=== PATIENT | male | born 1950 | race Caucasian/White ===

== ENCOUNTER 2017-12-16 08:48 | Observation (INO) ==
[2017-12-16] MEDS ORDERED: Metoclopramide 10 MG/2 ML VIAL IVP ONE (09:07)
[2017-12-16] MEDS ORDERED: diazePAM 10 MG/2 ML SYRINGE IVP STA (09:10)
--- NOTE | 2017-12-16 09:15 | Emergency Department Note ---
Disposition Clinical Impression: Dizziness, Nausea Disposition: Admitted As Inpatient Condition: Fair Referrals: Clarke Arias MD [Primary Care Provider] - Dizziness HPI - General Chief Complaint: ED Dizziness Stated Complaint: N/V Dizzy Post Lithotripsy Time Seen by Provider: 12/16/17 08:53 Source: patient Mode of arrival: private vehicle Limitations: no limitations Nursing Notes Reviewed: Yes Vital Signs Reviewed: Yes - History of Present Illness HPI Narrative: Patient is a 67-year-old male with past medical history including hypertension and diabetes mellitus type 2 who presents with a chief complaint of dizziness. The patient states yesterday evening he had a lithotripsy done. He has no history of complications from anesthesia. Around 1999 he states he developed dizziness when he stood up. He describes it as his head is spinning. It worsens with movement. The dizziness has not completely resolved. He feels unsteady on his feet. Family states that his gait is abnormal and he has to hold onto furniture to walk. He also complains of nausea and multiple episodes of vomiting associated with the dizziness. He denies chest pain, weakness, numbness or tingling, slurred speech or facial droop. Denies confusion or headaches. He states he has never had this before. He presents this morning for further evaluation of his dizziness. - Related Data Home Medications Medication Instructions Recorded Confirmed Cyanocobalamin (Vitamin B-12) 1,000 mcg PO 03/06/15 03/06/15 [Vitamin B-12] Ferrous Sulfate 325 mg PO DAILY 03/06/15 12/15/17 Glimepiride [Amaryl] 2 mg PO 0800 03/06/15 12/15/17 Hydrochlorothiazide 50 mg PO DAILY 03/06/15 12/15/17 Potassium Citrate [Urocit-K] 20 meq PO TID 03/06/15 12/15/17 Pravastatin Sodium 10 mg PO DAILY 03/06/15 12/15/17 Vit/FA 1 each PO DAILY 03/06/15 12/15/17 Cyclobenzaprine [Flexeril] 10 mg PO TID 12/15/17 12/15/17 Diclofenac Potassium 50 mg PO BID PRN 12/15/17 12/15/17 Exenatide Microspheres [Bydureon] 2 mg SQ QWEEK 12/15/17 12/15/17 Levomefolate/B6/B12/Algal Oil 1 each PO DAILY 12/15/17 12/15/17 [Metanx Capsule] SitaGLIPtin [Januvia] 100 mg PO DAILY 12/15/17 12/15/17 Previous Rx's Medication Instructions Recorded Oxycodone HCl/Acetaminophen 1 each PO Q4H 5 Days #20 tablet 12/15/17 [Percocet 5-325 mg Tablet] Allergies Allergy/AdvReac Type Severity Reaction Status Date / Time metformin Allergy Diarrhea Verified 12/06/17 10:11 Constitutional: Denies: fever, chills Eyes: Denies: vision change ENT ED: Denies: dysphagia Cardiovascular: Denies: chest pain, palpitations Respiratory: Denies: cough, dyspnea Gastrointestinal: Reports: nausea, vomiting. Denies: abdominal pain Genitourinary: Denies: dysuria Integumentary: Denies: rash Neurological: Reports: abnormal gait, vertigo. Denies: headache, weakness Hematological/Lymphatic: Denies: easy bleeding Past Medical History - Past Medical History Attestation: Yes The following information was validated with the patient. Source: patient Medical history: Reports: diabetes, GERD, hyperlipidemia, hypertension, kidney stones, other Surgical history: Reports: appendectomy, cholecystectomy, orthopedic, other, ureteral stent, other Psychiatric history: Reports: no psych history - Social History Smoking Status: Never smoker Smokeless Tobacco Status: No Alcohol use: Reports: none Drug use: Reports: none Physical Exam - General Limitations: no limitations General appearance: alert, in no apparent distress - Head Head exam: atraumatic, normocephalic - Eye Eye exam: Present: PERRL, EOMI. Absent: nystagmus - Respiratory Respiratory exam: Present: normal lung sounds bilaterally. Absent: respiratory distress, wheezes - Cardiovascular Cardiovascular exam: Present: regular rate, normal rhythm, normal heart sounds - Abdominal Exam Abdominal exam: Present: soft, Non-Tender, normal bowel sounds. Absent: distention - Extremities Exam Extremities exam: Present: full ROM. Absent: pedal edema - Neurological Exam Neurological exam: Present: alert, oriented X3, CN II-XII intact, other ( Patient wobbly while standing still. ) - Expanded Neurological Exam Patient oriented to: Present: person, place, time Speech: Present: fluid speech Cranial nerves: EOM function (II, III, IV, ): Normal, facial sensation (V): Normal, facial palsy (VII): Normal, tongue deviation (XII): Normal Cerebellar function: finger to nose: Normal, heel to duran: Normal Motor strength - LUE: 5/5 Motor strength - RUE: 5/5 Motor strength - LLE: 5/5 Motor strength - RLE: 5/5 Upper motor neuron exam: alfredo neglect: Absent bilaterally Sensory exam upper extremity: light touch: Normal Sensory exam lower extremity: light touch: Normal Coma Scale Eye Opening: Spontaneous Coma Scale Motor Response: Obeys Commands Coma Scale Verbal Response: Oriented Coma Scale Total: 15 Course Course Narrative: Patient has no ataxia or neurologic deficit noted on exam. His dizziness has been constant since yesterday around 1999. He has no history of TIA or CVA. Will check CT head without contrast to evaluate for any intracranial bleed. The patient will likely need an MRI to further evaluate for possible posterior circulation CVA. We will check CBC, BMP, POC glucose, troponin. We will give the patient Valium and Reglan for his symptoms. Patient does not meet criteria for TPA. He has no gross neurologic deficits. 09:45 Labs reviewed. Troponin negative. Electrolytes within normal limits. Glucose 3:30. Patient states he has not taken his medication today. We will radiate results of CT. 10:08 Patient oxygen saturation dropped to 89%. He wears oxygen at nighttime. Place the patient on 2L O2 per nasal cannula. He denies shortness of breath. Chest x-ray without acute cardiopulmonary abnormalities. CT head without acute intracranial abnormalities. Results show chronic small vessel disease. Patient will need an MRI for further evaluation and to rule out a posterior circulation stroke. 10:20 Patient states she is feeling better. His nausea is resolved and his dizziness is improved. The patient stand up and ambulate. He still appears to be unsteady will consult hospitalist for admission. 10:28 Discussed with Hospitalist, Dr. Waters. He will admit the patient. Recommended orthostatic vitals, which was ordered. All questions were answered and patient and family are agreeable to plan of care. Vital Signs Temperature 97.8 F 12/16/17 08:50 Pulse Rate 93 12/16/17 08:50 Respiratory Rate 20 12/16/17 08:50 Blood Pressure 168/90 12/16/17 08:50 O2 Sat by Pulse Oximetry 96 12/16/17 08:50 Temperature 97.8 F 12/16/17 09:45 Pulse Rate 93 12/16/17 09:45 Respiratory Rate 20 12/16/17 09:45 Blood Pressure 168/90 12/16/17 09:45 O2 Sat by Pulse Oximetry 96 12/16/17 09:45 Oxygen Delivery Oxygen Delivery Room Air Dizziness - Medical Records Medical records reviewed: Yes I reviewed the patient's medical records. - Lab Data Lab results reviewed: Yes I reviewed the patient's lab results. Result diagrams: 12/16/17 09:11 12/16/17 09:11 Lab Results 12/16/17 12/16/17 Range/Units 09:11 09:11 WBC 10.7 (4.3-11.1) K/mcL RBC 4.81 (4.19-5.50) M/mcL Hgb 15.3 (12.9-16.9) g/dL Hct 43.2 (37.5-50.1) % MCV 89.8 (83.0-100.0) fL MCH 31.8 (28.0-33.3) pg MCHC 35.4 (31.6-35.5) g/dL RDW 12.7 (11.5-14.5) % Plt Count 165 (140-400) K/mcL MPV 10.4 (9.4-12.4) fL Immature Gran % 0.3 (0-4) % Seg Neutrophils % 85.0 % Lymphocytes % 10.3 % Monocytes % 4.3 % Eosinophils % 0.0 % Basophils % 0.1 % Neutrophils # 9.1 H (1.6-8.9) K/mcL Lymphocytes # 1.1 (0.6-4.6) K/mcL Monocytes # 0.5 (0.0-1.3) K/mcL Eosinophils # 0.0 (0.0-0.6) K/mcL Basophils # 0.0 (0.0-0.2) K/mcL Sodium 138 (136-145) mEq/L Potassium 4.0 (3.5-5.1) mEq/L Chloride 101 (98-107) mEq/L Carbon Dioxide 24 (23-29) mEq/L BUN 14 (8-23) mg/dL Creatinine 1.06 (0.70-1.30) mg/dL Est GFR ( Amer) > 60 (> 60) Est GFR (Non-Af Amer) > 60 (> 60) BUN/Creatinine Ratio 13 (6-26) Glucose 333 H (70-105) mg/dL Calculated Osmolality 300 (280-300) Calcium 9.3 (8.6-10.3) mg/dL Troponin I < 0.03 (< 0.04) ng/mL - Radiology Data Radiology results reviewed: Yes I reviewed the patient's radiology results. Chest X-Ray 12/16/17 09:06 IMPRESSION: No acute findings. D/ / Atul Canales / Atul Canales Interpreting Provider: Atul Canales Head CT 12/16/17 09:11 IMPRESSION: 1. No acute intracranial abnormality. 2. Periventricular and subcortical white matter hypodensities are commonly due to chronic small vessel ischemic disease. D/ / Kerwin Martinez MD / Kerwin Martinez MD Interpreting Provider: Kerwin Martinez MD - EKG Data EKG attestation: Yes I reviewed and interpreted this EKG. EKG results narrative: EKG on 12/16/2017 with sinus rhythm with rate 84 bpm. DE interval 170 ms. QRS duration 97 ms. QTC 396 ms. Left axis deviation . No evidence of ST elevation or depression. Overall no acute ischemia. Compared to EKG on 12/06/2017. Appears unchanged.
[2017-12-16 09:21] LABS: Basophils % 0.1 %; Hematocrit 43.2 % (37.5-50.1); Hemoglobin 15.3 g/dL (12.9-16.9); Immature Granulocytes % 0.3 % (0-4); Lymphocytes # 1.1 K/mcL (0.6-4.6); Lymphocytes % 10.3 %; Mean Corpuscular HGB Conc 35.4 g/dL (31.6-35.5); Mean Corpuscular Hemoglobin 31.8 pg (28.0-33.3); Mean Corpuscular Volume 89.8 fL (83.0-100.0); Mean Platelet Volume 10.4 fL (9.4-12.4); Monocytes # 0.5 K/mcL (0.0-1.3); Monocytes % 4.3 %; Neutrophils # 9.1 K/mcL (1.6-8.9); Platelet Count 165 K/mcL (140-400); Red Blood Count 4.81 M/mcL (4.19-5.50); Red Cell Distribution Width 12.7 % (11.5-14.5)
[2017-12-16 09:41] LABS: BUN/Creatinine Ratio 13 (6-26); Blood Urea Nitrogen 14 mg/dL (8-23); Carbon Dioxide 24 mEq/L (23-29); Chloride 101 mEq/L (98-107); Sodium 138 mEq/L (136-145)
[2017-12-16 09:42] LABS: Calcium 9.3 mg/dL (8.6-10.3); Glucose 333 mg/dL (70-105); Osmolality,Calculated 300 (280-300); eGFR For Non-African Americans > 60 (> 60)
[2017-12-16 09:43] LABS: Troponin I < 0.03 ng/mL (< 0.04)
[2017-12-16] MEDS ORDERED: Naloxone 0.4 MG/ML INJ IVP PRN (10:28)
[2017-12-16] MEDS ORDERED: Aspirin 81 MG TAB.CHEW PO STA (10:31)
--- NOTE | 2017-12-16 11:10 | Internal Med History&Physical ---
Date of Encounter: 12/16/17 Time of Encounter: 10:45 Internal Medicine - H&P: HPI Chief complaint: vertigo Admitted From: Home History of present illness: Mr. Sherwood is a 67 year old male with past medical history of diabetes, who just had left ESWL yesterday under general anesthesia, presented to the ED this morning with sudden onset of vertigo. He states that he felt fine postoperatively and went home. At around 8:30 last night, he developed sudden onset of spinning sensation associated with nausea and vomiting. Was unsteady on his feet and almost fell backward but was able to prevent it. Denies any loss of consciousness, blurring of vision, headache, or focal weakness or numbness. No slurring of speech or facial droop. Denies any chest pain, shortness of breath, palpitation, orthopnea, PND, or lower leg swelling. Vertigo persisted throughout the night into the morning and therefore he decided to come to the ED for further evaluation. In the ED, he was afebrile and hemodynamically stable. Labs were unremarkable except for glucose of 333. Chest x-ray was unremarkable. CT head did not show any acute intracranial processes. His vertigo improved with Reglan however his unsteadiness on his feet persisted. He is admitted for further management. Past Med Surg Social Fam HX - Past Medical History Attestation: Yes The following information was validated with the patient. Medical history: diabetes, GERD, hyperlipidemia, hypertension, kidney stones, other Psychiatric history: no psych history - Past Surgical History Surgical History: appendectomy, cholecystectomy, orthopedic, other, ureteral stent, other Additional surgical history: CYSTOSCOPY, R ANKLE ORIF, ESWL, GASTRIC BYPASS, PANNICULECTOMY/ABDOMINOPLASTY, BACK C3-4, SEPTOPLASTY - Social History Smoking Status: Never smoker Smokeless Tobacco Status: No Alcohol use: none Drug use: none Internal Medicine - H&P: Meds Cyanocobalamin (Vitamin B-12) [Vitamin B-12] 1,000 mcg PO DAILY 03/06/15 [ History] Ferrous Sulfate 325 mg PO DAILY 03/06/15 [History] Glimepiride [Amaryl] 2 mg PO 0800 03/06/15 [History] Hydrochlorothiazide 50 mg PO DAILY 03/06/15 [History] Potassium Citrate [Urocit-K] 20 meq PO TID 03/06/15 [History] Pravastatin Sodium 10 mg PO DAILY 03/06/15 [History] Vit/FA 1 each PO DAILY 03/06/15 [History] Cyclobenzaprine [Flexeril] 10 mg PO TID 12/15/17 [History] Diclofenac Potassium 50 mg PO BID PRN 12/15/17 [History] Exenatide Microspheres [Bydureon] 2 mg SQ QWEEK 12/15/17 [History] Levomefolate/B6/B12/Algal Oil [Metanx Capsule] 1 each PO DAILY 12/15/17 [History ] Oxycodone HCl/Acetaminophen [Percocet 5-325 mg Tablet] 1 each PO Q4H 5 Days #20 tablet 12/15/17 [Rx] SitaGLIPtin [Januvia] 100 mg PO DAILY 12/15/17 [History] 3 Allergy/AdvReac Type Severity Reaction Status Date / Time metformin Allergy Diarrhea Verified 12/06/17 10:11 All Systems PM: A 10-system review of systems was performed and is negative for pertinent findings except as documented above in the HPI. - Constitutional Vitals: Temp Pulse Resp BP Pulse Ox 97.8 F 93 20 168/90 96 12/16/17 09:45 12/16/17 09:45 12/16/17 09:45 12/16/17 09:45 12/16/17 09:45 Exam: General: Alert and oriented, not in distress HEENT:EOM, pupils equal, round, and reactive. Cardiovascular:Normal S1 & S2, no murmurs or gallops. No JVD. Pulse regular. Lungs:Normal breath sounds, no wheezes or crackles. Abdomen:Soft, non-tender, no rigidity. Extremities:No deformity, no edema or tenderness, no joint swelling. Neurological: Cranial nerves II-12 intact, no slurring of speech. Power and sensation in all 4 limbs intact. No cerebellar signs. No nystagmus. Skin:Normal color, no rash, no lesions. Pulses:Carotid and radial pulses normal +2. Rest of the physical exam is non-contributory Internal Med - H&P Results - Labs CBC & Chem 7: 12/16/17 09:11 12/16/17 09:11 - Assessment and plan (1) Vertigo Current Visit: Yes Status: Acute Assessment and plan: Presented with sudden vertigo in a diabetic patient He underwent procedure that required general anesthesia which may be partially responsible Nevertheless, persistent symptoms would warrant further workup for CVA NIH per protocol We will do MRI brain today. 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 - Time Spent With Patient Total time spent is greater than 50% in coordination of care (as documented) at patient's floor/unit and/or counseling patient:
[2017-12-16] MEDS ORDERED: *HR* Dextrose 50 % in Water (Syg) 50 ML SYRINGE IVP PRN (11:13)
[2017-12-16] MEDS ORDERED: Dextrose Gel 15 GM/37.5 ML TUBE PO PRN ×2 (11:13)
[2017-12-16] MEDS ORDERED: D5% in Water 1,000 ML IVC PRN (11:13)
--- NOTE | 2017-12-16 11:14 | Emergency Department Note ---
Disposition Clinical Impression: Dizziness, Nausea Disposition: Admitted As Inpatient Condition: Fair Referrals: Clarke Arias MD [Partnered Physician] - General Adult HPI - General Chief complaint: ED Dizziness Stated complaint: N/V Dizzy Post Lithotripsy Time Seen by Provider: 12/16/17 08:53 Source: patient Mode of arrival: private vehicle Limitations: no limitations Nursing Notes Reviewed: Yes Vital Signs Reviewed: Yes - History of Present Illness Pain Scale: 0 - Related Data Home Medications Medication Instructions Recorded Confirmed Cyanocobalamin (Vitamin B-12) 1,000 mcg PO DAILY 03/06/15 12/16/17 [Vitamin B-12] Ferrous Sulfate 325 mg PO DAILY 03/06/15 12/16/17 Glimepiride [Amaryl] 2 mg PO 0800 03/06/15 12/16/17 Hydrochlorothiazide 50 mg PO DAILY 03/06/15 12/16/17 Potassium Citrate [Urocit-K] 20 meq PO TID 03/06/15 12/16/17 Pravastatin Sodium 10 mg PO DAILY 03/06/15 12/16/17 Vit/FA 1 each PO DAILY 03/06/15 12/16/17 Cyclobenzaprine [Flexeril] 10 mg PO TID 12/15/17 12/16/17 Diclofenac Potassium 50 mg PO BID PRN 12/15/17 12/16/17 Exenatide Microspheres [Bydureon] 2 mg SQ QWEEK 12/15/17 12/16/17 Levomefolate/B6/B12/Algal Oil 1 each PO DAILY 12/15/17 12/16/17 [Metanx Capsule] SitaGLIPtin [Januvia] 100 mg PO DAILY 12/15/17 12/16/17 Previous Rx's Medication Instructions Recorded Oxycodone HCl/Acetaminophen 1 each PO Q4H 5 Days #20 tablet 12/15/17 [Percocet 5-325 mg Tablet] Allergies Allergy/AdvReac Type Severity Reaction Status Date / Time metformin Allergy Diarrhea Verified 12/06/17 10:11 Constitutional: Denies: fever, chills Eyes: Denies: vision change ENT ED: Denies: dysphagia Cardiovascular: Denies: chest pain, palpitations Respiratory: Denies: cough, dyspnea Gastrointestinal: Reports: nausea, vomiting. Denies: abdominal pain Genitourinary: Denies: dysuria Integumentary: Denies: rash Neurological: Reports: abnormal gait, vertigo. Denies: headache, weakness Hematological/Lymphatic: Denies: easy bleeding Past Medical History - Past Medical History Medical history: Reports: diabetes, GERD, hyperlipidemia, hypertension, kidney stones, other Surgical history: Reports: appendectomy, cholecystectomy, orthopedic, other, ureteral stent, other Psychiatric history: Reports: no psych history - Social History Smoking Status: Never smoker Smokeless Tobacco Status: No Alcohol use: Reports: none Drug use: Reports: none Physical Exam - General Limitations: no limitations General appearance: alert, in no apparent distress Course Vital Signs Temperature 97.8 F 12/16/17 08:50 Pulse Rate 93 12/16/17 08:50 Respiratory Rate 20 12/16/17 08:50 Blood Pressure 168/90 12/16/17 08:50 O2 Sat by Pulse Oximetry 96 12/16/17 08:50 Temperature 97.8 F 12/16/17 09:45 Pulse Rate 93 12/16/17 09:45 Respiratory Rate 20 12/16/17 09:45 Blood Pressure 168/90 12/16/17 09:45 O2 Sat by Pulse Oximetry 96 12/16/17 09:45 Oxygen Delivery Oxygen Delivery Room Air Medical Decision Making - Lab Data Result diagrams: 12/16/17 09:11 12/16/17 09:11 Lab Results 12/16/17 12/16/17 Range/Units 09:11 09:11 WBC 10.7 (4.3-11.1) K/mcL RBC 4.81 (4.19-5.50) M/mcL Hgb 15.3 (12.9-16.9) g/dL Hct 43.2 (37.5-50.1) % MCV 89.8 (83.0-100.0) fL MCH 31.8 (28.0-33.3) pg MCHC 35.4 (31.6-35.5) g/dL RDW 12.7 (11.5-14.5) % Plt Count 165 (140-400) K/mcL MPV 10.4 (9.4-12.4) fL Immature Gran % 0.3 (0-4) % Seg Neutrophils % 85.0 % Lymphocytes % 10.3 % Monocytes % 4.3 % Eosinophils % 0.0 % Basophils % 0.1 % Neutrophils # 9.1 H (1.6-8.9) K/mcL Lymphocytes # 1.1 (0.6-4.6) K/mcL Monocytes # 0.5 (0.0-1.3) K/mcL Eosinophils # 0.0 (0.0-0.6) K/mcL Basophils # 0.0 (0.0-0.2) K/mcL Sodium 138 (136-145) mEq/L Potassium 4.0 (3.5-5.1) mEq/L Chloride 101 (98-107) mEq/L Carbon Dioxide 24 (23-29) mEq/L BUN 14 (8-23) mg/dL Creatinine 1.06 (0.70-1.30) mg/dL Est GFR ( Amer) > 60 (> 60) Est GFR (Non-Af Amer) > 60 (> 60) BUN/Creatinine Ratio 13 (6-26) Glucose 333 H (70-105) mg/dL Calculated Osmolality 300 (280-300) Calcium 9.3 (8.6-10.3) mg/dL Troponin I < 0.03 (< 0.04) ng/mL Attestation Statement - Attestation Attestation: I, Alex Cummings, examined this patient and my medical decision-making was reviewed with the BLACKENER/PA/Advanced Practice Nurse/Resident Physician. I agree with the documented findings, disposition and treatment plan as described except to the extent set forth below. 67-year-old male presents emergency Department with concerns of dizziness and difficulty with ambulation. Patient describes vertigo with room spinning, unable to ambulate without holding onto a nearby items. Patient had a lithotripsy procedure performed yesterday, he felt well after the procedure and ambulated well at home. A p.m. last night he started having acute onset of his symptoms. He slept well throughout the night however upon waking he was unable to ambulate without holding onto items. There is no focal neurologic deficits noted on exam however he does have a right beating nystagmus. Patient was given Reglan and Benadryl emergency department with significant improvement of his symptoms however he continued to remain vertiginous with ambulation. CT of the head is negative for acute intracranial hemorrhage or fracture. We will admit the patient for further evaluation of possible posterior CVA.
[2017-12-16] MEDS: Potassium Citrate 10 MEQ TABLET.ER PO SCH ×2 (14:12→17:59)
[2017-12-16] MEDS: Insulin LISPRO 300 UNITS/3 ML VIAL SQ SCH ×2 (14:12→17:59)
[2017-12-16] MEDS: *HR* Heparin 5,000 UNIT/ML VIAL SQ SCH (18:00)
[2017-12-16] MEDS ORDERED: Insulin LISPRO 300 UNITS/3 ML VIAL SQ SCH (21:00)
[2017-12-17 03:13] LABS: Basophils % 0.1 %; Eosinophils % 0.3 %; Hematocrit 40.7 % (37.5-50.1); Immature Granulocytes % 0.3 % (0-4); Lymphocytes # 2.4 K/mcL (0.6-4.6); Lymphocytes % 24.8 %; Mean Corpuscular HGB Conc 33.7 g/dL (31.6-35.5); Mean Corpuscular Hemoglobin 30.5 pg (28.0-33.3); Mean Corpuscular Volume 90.6 fL (83.0-100.0); Mean Platelet Volume 10.9 fL (9.4-12.4); Monocytes # 0.4 K/mcL (0.0-1.3); Monocytes % 4.6 %; Neutrophils # 6.6 K/mcL (1.6-8.9); Platelet Count 155 K/mcL (140-400); Red Blood Count 4.49 M/mcL (4.19-5.50); Red Cell Distribution Width 13.2 % (11.5-14.5); Segmented Neutrophils % 69.9 %
[2017-12-17 03:15] LABS: Hemoglobin 13.7 g/dL (12.9-16.9)
[2017-12-17 03:32] LABS: BUN/Creatinine Ratio 17 (6-26); Blood Urea Nitrogen 19 mg/dL (8-23); Calcium 9.1 mg/dL (8.6-10.3); Carbon Dioxide 31 mEq/L (23-29); Chloride 104 mEq/L (98-107); Chol/HDL Ratio 3.2 (0-4.9); Cholesterol 141 mg/dL (< 200); Glucose 99 mg/dL (70-105); HDL Cholesterol 44 mg/dL (40-59); LDL Cholesterol,Calculated 75 mg/dL (0-99); Osmolality,Calculated 294 (280-300); Potassium 3.7 mEq/L (3.5-5.1); Sodium 141 mEq/L (136-145); Triglycerides 108 mg/dL (< 150); eGFR For Non-African Americans > 60 (> 60)
[2017-12-17] MEDS: *HR* Heparin 5,000 UNIT/ML VIAL SQ SCH (05:49)
[2017-12-17] MEDS ORDERED: METHYLCOBALAMIN PO SCH (09:00)
[2017-12-17] MEDS ORDERED: [UNRECOGNIZED DRUG - OTHER] PO SCH (09:00)
[2017-12-17] MEDS ORDERED: hydroCHLOROthiazide 25 MG TABLET PO SCH (09:00)
[2017-12-17] MEDS ORDERED: Cyanocobalamin (B-12) 1,000 MCG TABLET PO SCH (09:00)
[2017-12-17] MEDS ORDERED: ALGAL OIL PO SCH (09:00)
[2017-12-17] MEDS ORDERED: LEVOMEFOLATE PO SCH (09:00)
[2017-12-17] MEDS: Insulin LISPRO 300 UNITS/3 ML VIAL SQ SCH ×2 (09:01→12:15)
[2017-12-17] MEDS: Potassium Citrate 10 MEQ TABLET.ER PO SCH ×2 (09:02→12:16)
[2017-12-17] MEDS ORDERED: Aspirin 81 MG TAB.CHEW PO SCH (14:00)
[2017-12-17 15:02] VITALS: BP 125/63
--- NOTE | 2017-12-17 16:42 | Discharge Summary ---
- NOTES TO OUTPATIENT PROVIDER Notes to Outpatient Provider: Follow-up with PCP in 2-3 days Orders not resulted at time of discharge: Pending orders 12/16/17 11:10 EKG [ECG 12 lead ECG] [ECG] Stat Date of Encounter: 12/17/17 Time of Encounter: 16:38 - Discharge Diagnosis (1) Vertigo Priority: Primary Status: Acute Assessment and Plan: Sudden onset of vertigo post procedure while recovering from anesthesia postop ESWL on this Monday. Patient got admitted for a stroke rule out workup. MRI brain with no acute finding, carotid ultrasound preliminary report with no acute finding. During his stay his symptoms resolved almost completely and able to ambulate without any support or fall. Fasting lipid profile within normal limit. Incidental finding of chronic small vessel changes in the MRI brain therefore advise for baby aspirin but patient wanted to discuss with PCP before starting. Patient is requesting to go home. I also advise patient to discuss with PCP about getting echocardiogram done on opd basis. Vertigo could be most likely due to the fact of anesthetic medicine while recovering postoperatively. Will discharge patient on meclizine when necessary. 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 Sherwood is a 67 year old male patient got admitted for CVA workup as sudden onset of vertigo postoperatively. MRI brain and carotid ultrasound with no acute finding. Please see details in diagnosis part of discharge summary. Patient is stable, ambulating tolerating oral diet at the time of discharge. Discharge discussed with: patient, family - Time Spent with Patient Total time spent providing and/or coordinating discharge services: - Discharge Medications Home Medications: Cyanocobalamin (Vitamin B-12) [Vitamin B-12] 1,000 mcg PO DAILY 03/06/15 [ History] Ferrous Sulfate 325 mg PO DAILY 03/06/15 [History] Glimepiride [Amaryl] 2 mg PO 0800 03/06/15 [History] Hydrochlorothiazide 50 mg PO DAILY 03/06/15 [History] Potassium Citrate [Urocit-K] 20 meq PO TID 03/06/15 [History] Pravastatin Sodium 10 mg PO DAILY 03/06/15 [History] Vit/FA 1 each PO DAILY 03/06/15 [History] Cyclobenzaprine [Flexeril] 10 mg PO TID 12/15/17 [History] Diclofenac Potassium 50 mg PO BID PRN 12/15/17 [History] Exenatide Microspheres [Bydureon] 2 mg SQ QWEEK 12/15/17 [History] Levomefolate/B6/B12/Algal Oil [Metanx Capsule] 1 each PO DAILY 12/15/17 [History ] Oxycodone HCl/Acetaminophen [Percocet 5-325 mg Tablet] 1 each PO Q4H 5 Days #20 tablet 12/15/17 [Rx] SitaGLIPtin [Januvia] 100 mg PO DAILY 12/15/17 [History] Allergies/Adverse Reactions: 3 Allergy/AdvReac Type Severity Reaction Status Date / Time metformin Allergy Diarrhea Verified 12/06/17 10:11 Date of admission: 12/16/17 10:38 Primary care physician: Clarke Arias MD - Constitutional Vitals: Temp Pulse Resp BP Pulse Ox 97.7 F 77 15 125/63 96 12/17/17 15:00 12/17/17 15:00 12/17/17 15:00 12/17/17 15:00 12/17/17 15:00 Exam: General appearance: No acute distress, A&O X 3 Head exam: Atraumatic Eye exam: EOMI, PERRLA ENT exam: Moist oral mucosa Neck nontender, supple Respiratory exam: Clear to auscultation bilaterally Cardiovascular exam: Regular rate and rhythm, no systolic murmur Abdominal exam: Soft, nontender, nondistended, positive bowel sounds Extremities exam: No calf tenderness, no pedal edema Present: Skin-no rash, warm, dry, intact Neurological exam: Alert, awake, oriented 3, CN II-XII intact, no focal deficits. No facial droop. Normal speech. Normal gait. Romberg sign negative - Patient Status Disposition: Home, Self-Care Condition: Good Overall status at discharge: patient is back to baseline - Discharge Instructions Follow Up With: Clarke Arias MD [Primary Care Provider] - - Diet and Activity Activity: increase activity as tolerated Diet: advance to your usual diet, diabetic diet, low fat, low cholesterol, low salt diet
--- NOTE | 2017-12-18 17:47 | Electrocardiograph Report ---
[address] [address] Test Date: 2017-12-16 Pat Name: Jim Sherwood Department: 104 Room: 3B48 Gender: M Application Support Intern: CARMEN : 1950 Requested By: Mulugeta Waters Order Number: [id number] Reading MD: Marianna Good Measurements Intervals Sherrill Rate: 84 P: 12 ND: 170 QRS: -25 QRSD: 97 T: 8 QT: 354 QTc: 396 Interpretive Statements SINUS RHYTHM BORDERLINE LEFT AXIS DEVIATION [QRS AXIS < -20] Electronically Signed On 12-18-2017 17:45:55 EDT by Marianna Good
== END 2017-12-17 17:39 | disposition home or self-care (01) ==
LOC: 3BNU 08:48 → EMEROO 08:48 → 3BNU 11:14
PROVIDERS: ADMIT Internal Medicine; ATTEND Internal Medicine

== ENCOUNTER 2019-09-03 09:44 | Inpatient (IN) ==
[2019-09-03] MEDS ORDERED: CeFAZolin Syr 2,000MG/20 ML 2,000 MG/20 ML SYRINGE IVPB ONE (10:20)
[2019-09-03] MEDS ORDERED: Ringers Solution, Lactated 1,000 ML IVC SCH (10:30)
[2019-09-03] MEDS ORDERED: *HR* OxyCODONE Immed Rel 5 MG TABLET PO PRN (11:24)
[2019-09-03] MEDS ORDERED: *HR* HYDROmorphone PF 0.5 MG/0.5 ML SYRINGE IVP PRN (11:24)
[2019-09-03] MEDS ORDERED: Ondansetron 4 MG/2 ML VIAL IVP ONE (11:24)
[2019-09-03] MEDS ORDERED: *HR* Midazolam HCl 2 MG/2 ML VIAL ONE (12:04)
[2019-09-03] MEDS ORDERED: *HR* FentaNYL (PF) 100 MCG/2 ML VIAL ONE ×2 (12:04→13:21)
[2019-09-03] MEDS ORDERED: *HR* Propofol 200 MG/20 ML VIAL IVP ONE (12:05)
[2019-09-03] MEDS ORDERED: *HR* Rocuronium Bromide 50 MG/5 ML VIAL ONE ×2 (12:07→14:06)
[2019-09-03] MEDS ORDERED: Lidocaine HCL 4 ML Topical Solution (Laryng-O-Jet Kit Sterile Pak) TP ONE (12:07)
[2019-09-03] MEDS ORDERED: Ondansetron 4 MG/2 ML VIAL ONE ×2 (12:07→14:21)
[2019-09-03] MEDS ORDERED: Lidocaine -MPF 2% 2 ML VIAL ONE (12:07)
[2019-09-03] MEDS ORDERED: Acetaminophen IV 1,000 MG/100 ML INFUS..BTL ONE (12:34)
[2019-09-03] MEDS ORDERED: *HR* PHENYLEPHRINE 1,000 MCG/10 ML SYRINGE IVP ONE (14:04)
[2019-09-03] MEDS ORDERED: *HR* Succinylcholine 200 MG/10 ML VIAL IVP ONE (14:05)
[2019-09-03] MEDS ORDERED: *HR* HYDROMORPHONE 2 MG/ML VIAL ONE (14:56)
[2019-09-03] MEDS ORDERED: *HR* Labetalol 20 MG/4 ML SYRINGE IVP PRN (15:14)
[2019-09-03] MEDS ORDERED: *HR* Labetalol 20 MG/4 ML SYRINGE IVP ONE (15:16)
[2019-09-03] MEDS ORDERED: D5% in Water 1,000 ML IVC PRN (16:51)
[2019-09-03] MEDS ORDERED: *HR* Dextrose 50 % in Water (Syg) 50 ML SYRINGE IVP PRN (16:51)
[2019-09-03] MEDS ORDERED: *HR* FentaNYL (PF) 100 MCG/2 ML VIAL IVP PRN (16:51)
[2019-09-03] MEDS ORDERED: ALPRAZolam 0.25 MG TABLET PO PRN (16:51)
[2019-09-03] MEDS ORDERED: Dextrose Gel 15 GM/37.5 ML TUBE PO PRN ×2 (16:51)
[2019-09-03] MEDS ORDERED: Naloxone 0.4 MG/ML INJ IVP PRN (16:51)
[2019-09-03] MEDS: 0.9 % Sodium Chloride 1,000 ML IVC SCH (17:13)
[2019-09-03] MEDS: *HR* OxyCODONE/APAP 5/325 TABLET PO PRN (17:13)
[2019-09-03] MEDS: Insulin LISPRO 300 UNITS/3 ML VIAL SQ SCH (17:14)
[2019-09-03] MEDS: ceFAZolin 2,000 MG in 0.9 % Sodium Chloride 100 ML IVPB SCH (17:25)
[2019-09-03] MEDS: Ondansetron 4 MG/2 ML VIAL IVP PRN (17:50)
[2019-09-03] MEDS ORDERED: Mirtazapine 15 MG TABLET PO SCH (21:00)
[2019-09-04] MEDS: ceFAZolin 2,000 MG in 0.9 % Sodium Chloride 100 ML IVPB SCH (00:45)
[2019-09-04] MEDS: Insulin LISPRO 300 UNITS/3 ML VIAL SQ SCH ×2 (00:46→06:51)
[2019-09-04] MEDS: *HR* OxyCODONE/APAP 5/325 TABLET PO PRN ×2 (01:00→13:05)
[2019-09-04] MEDS: Ondansetron 4 MG/2 ML VIAL IVP PRN ×2 (01:01→13:05)
[2019-09-04 05:45] LABS: Basophils % 0.5 %; Eosinophils % 0.4 %; Hematocrit 42.9 % (37.5-50.1); Hemoglobin 14.4 g/dL (12.9-16.9); Immature Granulocytes % 0.2 % (0-4); Lymphocytes # 1.2 K/mcL (0.6-4.6); Lymphocytes % 14.5 %; Mean Corpuscular HGB Conc 33.6 g/dL (31.6-35.5); Mean Corpuscular Hemoglobin 30.9 pg (28.0-33.3); Mean Corpuscular Volume 92.1 fL (83.0-100.0); Mean Platelet Volume 10.1 fL (9.4-12.4); Monocytes # 0.5 K/mcL (0.0-1.3); Monocytes % 6.3 %; Neutrophils # 6.6 K/mcL (1.6-8.9); Platelet Count 146 K/mcL (140-400); Red Blood Count 4.66 M/mcL (4.19-5.50); Red Cell Distribution Width 12.7 % (11.5-14.5); Segmented Neutrophils % 78.1 %; White Blood Count 8.5 K/mcL (4.3-11.1)
[2019-09-04 05:46] LABS: Prothrombin Time 11.8 Seconds (9.4-12.1)
[2019-09-04] MEDS: 0.9 % Sodium Chloride 1,000 ML IVC SCH (09:06)
[2019-09-04 10:08] LABS: Calcium 8.4 mg/dL (8.6-10.3); Potassium 3.9 mEq/L (3.5-5.1)
[2019-09-04 10:30] VITALS: BP 138/78
[2019-09-04] MEDS ORDERED: Insulin LISPRO 300 UNITS/3 ML VIAL SQ SCH ×2 (11:30→21:00)
== END 2019-09-04 13:46 | disposition home or self-care (01) | DRG 657 ==
LOC: SAMDAY 09:44 → 3ANU 16:35
PROVIDERS: ADMIT Urology; ATTEND Urology

== ENCOUNTER 2021-12-06 06:24 | Inpatient (IN) ==
[2021-12-06] MEDS ORDERED: Aspirin 325 MG TABLET PO ONE (06:36)
[2021-12-06] MEDS ORDERED: *HR* Heparin 5,000 UNIT/ML VIAL IVP ONE (06:45)
[2021-12-06] MEDS ORDERED: *HR* Heparin 5,000 UNIT/ML VIAL ONE (06:45)
[2021-12-06] MEDS ORDERED: *HR* Ticagrelor 90 MG TABLET ONE (06:45)
[2021-12-06] MEDS ORDERED: *HR* Ticagrelor 90 MG TABLET PO ONE (06:46)
[2021-12-06] MEDS ORDERED: Nitroglycerin 1,000 MCG/5 ML VIAL IV ONE (06:53)
[2021-12-06] MEDS ORDERED: *HR* Heparin 10,000 UNIT/10 ML VIAL ONE (06:53)
[2021-12-06] MEDS ORDERED: 0.9 % Sodium Chloride 1,000 ML ONE (06:53)
[2021-12-06] MEDS ORDERED: Iopamidol - 370 200 ML INFUS..BTL ONE ×2 (06:53→07:52)
[2021-12-06] MEDS ORDERED: Heparin 1,000 UNITS/500 mL 500 ML ONE (06:53)
[2021-12-06 07:03] LABS: Prothrombin Time 11.6 Seconds (9.4-12.1)
[2021-12-06 07:05] LABS: Activated Partial Thrombo Time 21.9 Seconds (26.0-36.0)
[2021-12-06] MEDS ORDERED: *HR* Midazolam HCl 2 MG/2 ML VIAL ONE (07:15)
[2021-12-06] MEDS ORDERED: Tirofiban 12.5 MG/250ML 12.5 MG/250 ML BAG ONE (07:15)
[2021-12-06] MEDS ORDERED: *HR* FentaNYL (PF) 100 MCG/2 ML VIAL ONE (07:15)
[2021-12-06 07:19] LABS: Basophils % 0.2 %; Eosinophils % 0.2 %; Hematocrit 42.5 % (37.5-50.1); Hemoglobin 14.3 g/dL (12.9-16.9); Immature Granulocytes % 0.3 % (0-4); Lymphocytes # 1.2 K/mcL (0.6-4.6); Lymphocytes % 11.3 %; Mean Corpuscular HGB Conc 33.6 g/dL (31.6-35.5); Mean Corpuscular Hemoglobin 31.2 pg (28.0-33.3); Mean Corpuscular Volume 92.8 fL (83.0-100.0); Mean Platelet Volume 10.9 fL (9.4-12.4); Monocytes # 0.8 K/mcL (0.0-1.3); Monocytes % 7.9 %; Neutrophils # 8.3 K/mcL (1.6-8.9); Platelet Count 130 K/mcL (140-400); Red Blood Count 4.58 M/mcL (4.19-5.50); Red Cell Distribution Width 12.5 % (11.5-14.5); Segmented Neutrophils % 80.1 %; White Blood Count 10.4 K/mcL (4.3-11.1)
[2021-12-06 07:24] LABS: Calcium 9.8 mg/dL (8.6-10.3); Magnesium 1.7 mg/dL (1.6-2.6); Potassium 4.5 mEq/L (3.5-5.1); Troponin I 39.41 ng/mL (< 0.04)
[2021-12-06] MEDS ORDERED: Perflutren Lipid Microsphere 1.3 ML in 0.9 % Sodium Chloride 8.7 ML IVP PRN (10:13)
[2021-12-06] MEDS ORDERED: Tirofiban 12.5 MG/250ML 12.5 MG/250 ML BAG IVC SCH (10:15)
[2021-12-06] MEDS ORDERED: D5% in Water 1,000 ML IVC PRN (16:58)
[2021-12-06] MEDS ORDERED: *HR* Dextrose 50 % in Water (Syg) 50 ML SYRINGE IVP PRN (16:58)
[2021-12-06] MEDS ORDERED: Dextrose Gel 15 GM/37.5 ML TUBE PO PRN ×2 (16:58)
[2021-12-06] MEDS: Insulin LISPRO 300 UNITS/3 ML VIAL SUBQ SCH (17:11)
[2021-12-06] MEDS: 0.9 % Sodium Chloride 1,000 ML IVC SCH (17:12)
[2021-12-06] MEDS: *HR* Acetylcysteine 20% 600 MG/3 ML ORAL SYRINGE PO SCH ×2 (17:34→19:58)
[2021-12-06] MEDS ORDERED: ALPRAZolam 0.5 MG TABLET PO PRN (17:36)
[2021-12-06] MEDS ORDERED: Ipratropium/Albuterol Neb 3 ML IH PRN (17:39)
[2021-12-06] MEDS: *HR* Ticagrelor 90 MG TABLET PO SCH (19:58)
[2021-12-06] MEDS ORDERED: Insulin LISPRO 300 UNITS/3 ML VIAL SUBQ SCH (21:00)
[2021-12-07] MEDS: 0.9 % Sodium Chloride 1,000 ML IVC SCH ×3 (02:30→23:34)
[2021-12-07 03:58] LABS: Red Blood Count 3.17 M/mcL (4.19-5.50); Red Cell Distribution Width 12.7 % (11.5-14.5)
[2021-12-07 04:00] LABS: Basophils % 0.2 %; Eosinophils % 0.5 %; Hematocrit 30.2 % (37.5-50.1); Hemoglobin 9.9 g/dL (12.9-16.9); Immature Granulocytes % 0.3 % (0-4); Lymphocytes % 14.7 %; Mean Corpuscular HGB Conc 32.8 g/dL (31.6-35.5); Mean Corpuscular Hemoglobin 31.2 pg (28.0-33.3); Mean Corpuscular Volume 95.3 fL (83.0-100.0); Monocytes # 0.6 K/mcL (0.0-1.3); Monocytes % 8.6 %; Segmented Neutrophils % 75.7 %; White Blood Count 6.6 K/mcL (4.3-11.1)
[2021-12-07 04:36] LABS: Platelet Count 91 K/mcL (140-400)
[2021-12-07 05:23] LABS: Estimated Average Glucose 143 mg/dl; Hemoglobin A1C 6.6 %
[2021-12-07 07:15] LABS: Calcium 8.1 mg/dL (8.6-10.3); Magnesium 1.7 mg/dL (1.6-2.6); Phosphorous 2.5 mg/dL (2.7-4.5); Potassium 4.1 mEq/L (3.5-5.1)
[2021-12-07] MEDS: *HR* Ticagrelor 90 MG TABLET PO SCH ×2 (07:49→20:47)
[2021-12-07] MEDS: Insulin LISPRO 300 UNITS/3 ML VIAL SUBQ SCH ×3 (07:50→16:46)
[2021-12-07] MEDS: *HR* Acetylcysteine 20% 600 MG/3 ML ORAL SYRINGE PO SCH ×2 (07:50→20:47)
[2021-12-07] MEDS ORDERED: Cholecalciferol (D-3) 1,000 UNIT (25MCG) TABLET PO SCH (09:00)
[2021-12-07] MEDS ORDERED: Metoprolol XL (24 HR) Succ 25 MG TAB.ER.24H PO SCH (10:15)
[2021-12-07] MEDS ORDERED: Aspirin Enteric Coated 81 MG Tablet PO SCH (10:15)
[2021-12-07] MEDS ORDERED: *HR* Heparin 5,000 UNIT/ML VIAL SQ SCH (10:15)
[2021-12-07] MEDS ORDERED: D5% in Water 1,000 ML IVC PRN (10:52)
[2021-12-07] MEDS ORDERED: ALPRAZolam 0.5 MG TABLET PO PRN (10:52)
[2021-12-07] MEDS ORDERED: *HR* Dextrose 50 % in Water (Syg) 50 ML SYRINGE IVP PRN (10:52)
[2021-12-07] MEDS ORDERED: Dextrose Gel 15 GM/37.5 ML TUBE PO PRN ×2 (10:52)
[2021-12-07] MEDS ORDERED: Budesonide/Formoterol 80/4.5 1 PUFF INH IH PRN (10:52)
[2021-12-07] MEDS ORDERED: Ipratropium/Albuterol Neb 3 ML IH PRN (10:52)
[2021-12-07] MEDS: Aspirin Enteric Coated 81 MG Tablet PO SCH (11:21)
[2021-12-07] MEDS: Metoprolol XL (24 HR) Succ 25 MG TAB.ER.24H PO SCH (11:21)
[2021-12-07] MEDS: *HR* Heparin 5,000 UNIT/ML VIAL SQ SCH ×2 (11:21→16:46)
[2021-12-07 13:20] LABS: Hematocrit 39.6 % (37.5-50.1)
[2021-12-07 13:22] LABS: Hemoglobin 13.3 g/dL (12.9-16.9)
[2021-12-07] MEDS ORDERED: *HR* Glimepiride 2 MG TABLET PO SCH (17:00)
[2021-12-07] MEDS: (Colestipol Hcl [Colestid] 1 GM Tablet) PO SCH (20:52)
[2021-12-07] MEDS ORDERED: Mirtazapine 15 MG TABLET PO SCH ×2 (21:00)
[2021-12-07] MEDS ORDERED: *HR* Acetylcysteine 20% 600 MG/3 ML ORAL SYRINGE PO SCH (21:00)
[2021-12-07] MEDS ORDERED: Insulin LISPRO 300 UNITS/3 ML VIAL SUBQ SCH (21:00)
[2021-12-08] MEDS: *HR* Heparin 5,000 UNIT/ML VIAL SQ SCH (05:17)
[2021-12-08 06:06] VITALS: O2SAT 96
[2021-12-08 06:47] LABS: Calcium 8.1 mg/dL (8.6-10.3); Magnesium 1.8 mg/dL (1.6-2.6); Potassium 4.3 mEq/L (3.5-5.1)
[2021-12-08] MEDS: Insulin LISPRO 300 UNITS/3 ML VIAL SUBQ SCH (08:00)
[2021-12-08] MEDS: Aspirin Enteric Coated 81 MG Tablet PO SCH (08:46)
[2021-12-08] MEDS: *HR* Ticagrelor 90 MG TABLET PO SCH (08:46)
[2021-12-08] MEDS: Metoprolol XL (24 HR) Succ 25 MG TAB.ER.24H PO SCH (08:46)
[2021-12-08] MEDS: (Colestipol Hcl [Colestid] 1 GM Tablet) PO SCH (08:47)
[2021-12-08] MEDS: *HR* Acetylcysteine 20% 600 MG/3 ML ORAL SYRINGE PO SCH (08:47)
[2021-12-08] MEDS ORDERED: *HR* SitaGLIPtin 100 MG TABLET PO SCH (09:00)
[2021-12-08] MEDS ORDERED: Cholecalciferol (D-3) 1,000 UNIT (25MCG) TABLET PO SCH (09:00)
[2021-12-08] MEDS: 0.9 % Sodium Chloride 1,000 ML IVC SCH (11:25)
[2021-12-08] MEDS ORDERED: Insulin LISPRO 300 UNITS/3 ML VIAL SUBQ SCH ×2 (11:36)
[2021-12-08 11:48] VITALS: TEMP 97.9
[2021-12-08 12:43] VITALS: BP 120/78; PULSE 85
[2021-12-12] MEDS ORDERED: EXENATIDE MICROSPHERES SUBQ SCH (10:09)
== END 2021-12-08 14:51 | disposition home or self-care (01) | DRG 251 ==
LOC: EMEROOARM 06:24 → ICNU 07:30
PROVIDERS: ADMIT Internal Medicine Interventional Cardiology; ATTEND Internal Medicine Interventional Cardiology